=== PATIENT | male | born 1945 | race Caucasian/White ===

== ENCOUNTER 2023-02-06 18:16 | Emergency (ER) | payer OTHER, MEDICARE, SELFPAY ==
[2023-02-06 18:19] VITALS: BP 175/76; PULSE 84; RESP 20; TEMP 36.7; O2SAT 96; BMI 25.1
--- NOTE | 2023-02-06 18:33 | ED_ITS ---
HPI - Extremity Injury (Lower) General Chief Complaint: Extremity Pain/Injury, Lower Stated Complaint: Bruise Time Seen by Provider: 02/06/23 18:27 History of Present Illness HPI Narrative: Bruise to the back of the left leg. Has had for a week, getting worse. Hamstring feels painful. Unknown injury . Was standing a lot more in the boat the week before when he was on a fishing trip in [place]. Was in the car for about 8 hours to get to his trip. Did get up and move every couple of hours . Has a TENS machine that he may have increased to high. On a blood thinner 77-year-old man presenting to the emergency department with concern of injury to the left lower posterior thigh. Has an exercise device where he stands on it and in vibrates. This is not necessarily a new activity for him but had been doing it prior to development of this bruising swelling below his thigh. Noticed maybe a little sore after that. Had also been doing a lot of standing fishing in about on the trip. Does take anticoagulation in the form of rivaroxaban. Also extended trip recently. No particular trauma noted. No fever. No chest pain or shortness of breath or cough cold symptoms. He says his really evaluated this. They were told that if on this anticoagulant he starts to see any bruising than he needs to be evaluated Related Data Home Medications Medication Instructions Recorded Confirmed diltiazem HCl 120 mg 120 mg PO DAILY 02/06/23 02/06/23 capsule,extended release 12 hr losartan 50 mg tablet (Cozaar) 50 mg PO DAILY 02/06/23 02/06/23 omeprazole 20 mg capsule,delayed 20 mg PO DAILY 02/06/23 02/06/23 release rivaroxaban 20 mg tablet 20 mg PO DAILY 02/06/23 02/06/23 rosuvastatin 10 mg tablet (Crestor) 10 mg PO DAILY 02/06/23 02/06/23 trospium 20 mg tablet 20 mg PO DAILY 02/06/23 02/06/23 Allergies Allergy/AdvReac Type Severity Reaction Status Date / Time No Known Drug Allergies Allergy Verified 02/06/23 18:26 Review of Systems Status of ROS: Reports: 6 or more systems reviewed and unremarkable except as noted in History and below PFSH PFSH Social History Smoking Status: Unknown if ever smoked Exam Narrative: Exam Narrative: Pleasant. NAD. Cranial nerves 2-12 intact. Breathing easily. Heart with regular rate and rhythm. Examination lower extremities are some maybe subtle dependent edema in bilateral lower extremities. There is some purpling bruising posterior aspect of his lower left thigh. I do not appreciate effusion about the knees or any trauma to the skin otherwise. Const: Vital Signs, click to edit/add: Vital Signs - 24 hr 02/06/23 18:19 Temperature 98.0 F Pulse Rate [Pulse Oximeter] 84 Respiratory Rate 20 Blood Pressure [Ri ght Upper Arm] 175/76 H Pulse Oximetry 96 Course Vital Signs Vital signs: Initial Vital Signs Temperature 98.0 F 02/06/23 18:19 Temperature Source Temporal Artery Scan 02/06/23 18:19 Pulse Rate 84 02/06/23 18:19 Respiratory Rate 20 02/06/23 18:19 Blood Pressure 175/76 H 02/06/23 18:19 Blood Pressure Mean 109 H 02/06/23 18:19 Blood Pressure Position Sitting 02/06/23 18:19 Pulse Oximetry 96 02/06/23 18:19 Vital Signs Temperature 98.0 F 02/06/23 18:19 Pulse Rate 84 02/06/23 18:19 Respiratory Rate 20 02/06/23 18:19 Blood Pressure 175/76 H 02/06/23 18:19 Pulse Oximetry 96 02/06/23 18:19 Temperature 98.0 F 02/06/23 18:19 Pulse Rate 84 02/06/23 18:19 Respiratory Rate 20 02/06/23 18:19 Blood Pressure 175/76 H 02/06/23 18:19 Pulse Oximetry 96 02/06/23 18:19 MDM - Extremity Injury (Lower) MDM Narrative Medical decision making narrative: Given the lack of discomfort I suspect minor strain if any to the muscle or more likely some superficial bruising. Is anticoagulated unlikely to treat further for any DVT. It seems as though would be benefit from having further information. I would also do not think that there is a significant hematoma in this area. Nothing to drain. Can check hemoglobin as well. Ultrasound noted to be unremarkable. Discussed with technologist. Lab Data Attestation: I reviewed the patient's lab results. Labs: Lab Results 02/06/23 Range/Units 18:55 WBC 9.82 (4.50-11.00) K/uL RBC 4.72 (4.30-5.90) m/uL Hgb 14.9 (13.5-17.5) gm/dL Hct 45.2 (37.0-53.0) % MCV 96 (80-100) fL MCH 32 (26-34) pg MCHC 33 (32-36) gm/dL RDW Coeff of [place] 12.9 (11.5-15.5) % Plt Count 222 (140-440) K/uL Neut % (Auto) 73.8 H (42.0-72.0) % Lymph % (Auto) 14.6 L (20-44) % [place] % (Auto) 9.1 (0.0-11.0) % Eos % (Auto) 1.9 (0.0-7.0) % Baso % (Auto) 0.3 (0.0-3.0) % Neut # (Auto) 7.20 H (1.7-7.0) K/uL Lymph # (Auto) 1.40 (0.90-2.90) K/uL [place] # (Auto) 0.90 (0.00-0.90) K/UL Eos # (Auto) 0.19 (0.00-0.50) K/uL Baso # (Auto) 0.03 (0.00-0.30) K/uL Discharge Plan Discharge Clinical Impression: Anticoagulated, Muscle strain, Contusion Patient Disposition: Home, Self-Care Condition: Stable Additional Instructions: At this point I would continue your Xarelto. Watch for marked increase in pain, swelling, redness. Prescriptions: No Action losartan [Cozaar] 50 mg tablet 50 mg PO DAILY rivaroxaban 20 mg tablet 20 mg PO DAILY Rx Instructions: must administer with evening meal diltiazem HCl 120 mg capsule,extended release 12 hr 120 mg PO DAILY trospium 20 mg tablet 20 mg PO DAILY Rx Instructions: administer on an empty stomach omeprazole 20 mg capsule,delayed release(DR/EC) 20 mg PO DAILY rosuvastatin [Crestor] 10 mg tablet 10 mg PO DAILY Follow Up/Referrals: Provider,Not a Local [Primary Care Provider] - Stand Alone Forms: [employer] Info Instructions
--- NOTE | 2023-02-06 18:34 | CRLHL7_ITS ---
For Patients: As a result of the Century Cures Act, medical imaging exams and procedure reports are released immediately into your electronic medical record. You may view this report before your referring provider. If you have questions, please contact your health care provider. INDICATION: Pain, swelling and bruising COMPARISON: None available. FINDINGS: Ultrasound of the venous drainage of the left lower extremity shows no evidence of deep venous thrombosis. There is normal antegrade flow from the posterior tibial and popliteal veins superiorly through the common femoral vein. There is normal augmentation and compressibility of these veins. The right common femoral vein is widely patent. IMPRESSION: No evidence of deep venous thrombosis on ultrasound examination of the left lower extremity. Dictated by Don Dewitt MD @ 02/06/2023 8:27:51 PM (Electronically Signed)
[2023-02-06 19:00] LABS: Basophils Absolute Auto 0.03 K/uL (0.00-0.30); Basophils Percent Auto 0.3 % (0.0-3.0); Eosinophils Absolute Auto 0.19 K/uL (0.00-0.50); Eosinophils Percent Auto 1.9 % (0.0-7.0); Hematocrit 45.2 % (37.0-53.0); Hemoglobin* 14.9 gm/dL (13.5-17.5); Immature Granulocytes Abs Auto 0.03 K/uL (0.00-0.30); Immature Granulocytes Pct Auto 0.3 %; Lymphocytes Percent Auto 14.6 % (20-44); Mean Corpuscular HGB Conc 33 gm/dL (32-36); Mean Corpuscular Hemoglobin 32 pg (26-34); Mean Corpuscular Volume 96 fL (80-100); Monocytes Percent Auto 9.1 % (0.0-11.0); Neutrophils Percent Auto 73.8 % (42.0-72.0); Platelet Count* 222 K/uL (140-440); RDW Coefficient of Variation % 12.9 % (11.5-15.5); Red Blood Count 4.72 m/uL (4.30-5.90); White Blood Count* 9.82 K/uL (4.50-11.00)
[2023-02-06 19:03] LABS: Slide Review Reflex No
== END 2023-02-06 21:29 | disposition home or self-care (01) ==
PROVIDERS: Emergency Provider Family Medicine
DX: S70.12XA Contusion of left thigh, initial encounter (principal); Z79.01 Long term (current) use of anticoagulants; R60.0 Localized edema
CPT/HCPCS: 36415; 85025; 93971; 99283; 99284

== ENCOUNTER 2023-07-29 18:02 | Emergency (ER) | payer OTHER, MEDICARE, SELFPAY ==
[2023-07-29 18:22] VITALS: BP 169/108; PULSE 88; RESP 20; TEMP 36.3; O2SAT 98; BMI 25.8
--- NOTE | 2023-07-29 18:26 | ED.GENADULT ---
HPI - General Adult General Chief complaint: Epistaxis/Nosebleed Stated complaint: Spontaneous nose bleed followed by L eye bleed Time Seen by Provider: 07/29/23 18:07 History of Present Illness HPI narrative: Patient is a 77-year-old male had a nosebleed today he clamped it and it leaked out a little bit on the medial epicanthal area of his eye as well. He is on a novel anticoagulant arrive ox a band and he takes that for atrial fibrillation. The patient presents with left-sided nasal bleeding. He is not lightheaded or di Related Data Home Medications Medication Instructions Recorded Confirmed diltiazem HCl 120 mg 120 mg PO DAILY 02/06/23 02/06/23 capsule,extended release 12 hr losartan 50 mg tablet (Cozaar) 50 mg PO DAILY 02/06/23 02/06/23 omeprazole 20 mg capsule,delayed 20 mg PO DAILY 02/06/23 02/06/23 release rivaroxaban 20 mg tablet 20 mg PO DAILY 02/06/23 02/06/23 rosuvastatin 10 mg tablet (Crestor) 10 mg PO DAILY 02/06/23 02/06/23 trospium 20 mg tablet 20 mg PO DAILY 02/06/23 02/06/23 Previous Rx's Medication Instructions Recorded cephalexin 500 mg capsule 500 mg PO TID #15 caps 07/29/23 Allergies Allergy/AdvReac Type Severity Reaction Status Date / Time No Known Drug Allergies Allergy Verified 02/06/23 18:26 Review of Systems Status of ROS: Reports: 6 or more systems reviewed and unremarkable except as noted in History and below PFSH PFS Social History Smoking Status: Unknown if ever smoked Exam Narrative: Exam Narrative: Objective: Patient's vital signs show elevated blood pressure, he has a good amount of clotted blood in his left nostril. He has little bit of blood around lower aspect of his e Const: Vital Signs, click to edit/add: Vital Signs - 24 hr 07/29/23 18:22 Temperature 97.4 F L Pulse Rate [Pulse Oximeter] 88 Respiratory Rate 20 Blood Pressure [Ri ght Upper Arm] 169/108 H Pulse Oximetry 98 Oxygen Delivery Me thod Room Air Course Vital Signs Vital signs: Initial Vital Signs Temperature 97.4 F L 07/29/23 18:22 Temperature Source Temporal Artery Scan 07/29/23 18:22 Pulse Rate 88 07/29/23 18:22 Pulse Rhythm Regular 07/29/23 18:22 Respiratory Rate 20 07/29/23 18:22 Blood Pressure 169/108 H 07/29/23 18:22 Blood Pressure Mean 128 H 07/29/23 18:22 Blood Pressure Position Sitting 07/29/23 18:22 Pulse Oximetry 98 07/29/23 18:22 Oxygen Delivery Method Room Air 07/29/23 18:22 Vital Signs Temperature 97.4 F L 07/29/23 18:22 Pulse Rate 88 07/29/23 18:22 Respiratory Rate 20 07/29/23 18:22 Blood Pressure 169/108 H 07/29/23 18:22 Pulse Oximetry 98 07/29/23 18:22 Oxygen Delivery Method Room Air 07/29/23 18:22 Temperature 97.4 F L 07/29/23 18:22 Pulse Rate 88 07/29/23 18:22 Respiratory Rate 20 07/29/23 18:22 Blood Pressure 169/108 H 07/29/23 18:22 Pulse Oximetry 98 07/29/23 18:22 Oxygen Delivery Method Room Air 07/29/23 18:22 Medications Administered Medications: Discontinued Medications Generic Name Dose Route Start Last Admin Trade Name Xiomara PRN Reason Stop Dose Admin Cephalexin HCl 500 mg 07/29/23 18:32 07/29/23 18:39 Cephalexin 500 Mg Capsule PO 07/29/23 18:33 500 mg ONCE ONE Administration Medical Decision Making MDM Narrative Medical decision making narrative: [age] white male on anticoagulation for AFib with left nasal epistaxis. After observation and exam the patient has a narrow nasal passage. Was unable to pass a rhino rocket. I did put some silver nitrate cautery around the nasal septum on the left and then that was followed with Brynn after I cut it down to a sharper narrow were component. This was able to pass. I was able to secure to his cheek with the strings. This should be removed in 48 hours. I will put him on Keflex 500 t.i.d. x5 days. He will be observed in the ED for appeared of time make sure he has no further bleeding at this point is bleeding has been stopped and will clean him up and observe for period of time if he is doing well long to go home. Discussed that there is good percentage of time that the nose rebleeds and he may need repeat treatment. Hopefully we can stop it with the pack. He has appointment his doctor within 48 hours and he can get the pack removed at that time. If at any time he has problem or can get the pack out with his clinic he can come back to the ER Discharge Plan Discharge Clinical Impression: Epistaxis Patient Disposition: Home w/ Parent or Adult Condition: Improved Instructions: Nosebleed (ED) Additional Instructions: Avoid picking or blowing the nose, leave the Merocel in until Thursday morning and then may have this removed at the clinic. Put you on an antibiotic prevent sinus infection 3 times a day for the next 5 days. Return to the ED for recurrent bleeding of significant amount or other concerns. Activity Level: Light activity Discharge Diet: Regular Prescriptions: New cephalexin 500 mg capsule 500 mg PO TID Qty: 15 0RF No Action losartan [Cozaar] 50 mg tablet 50 mg PO DAILY rivaroxaban 20 mg tablet 20 mg PO DAILY Rx Instructions: must administer with evening meal diltiazem HCl 120 mg capsule,extended release 12 hr 120 mg PO DAILY trospium 20 mg tablet 20 mg PO DAILY Rx Instructions: administer on an empty stomach omeprazole 20 mg capsule,delayed release(DR/EC) 20 mg PO DAILY rosuvastatin [Crestor] 10 mg tablet 10 mg PO DAILY Follow Up/Referrals: Provider,Not a Local [Primary Care Provider] - Stand Alone Forms: [facility] [employer] Info Instructions
[2023-07-29] MEDS: cephALEXin 500 MG CAPSULE PO (18:39)
== END 2023-07-29 18:50 | disposition home or self-care (01) ==
LOC: ED 18:44
PROVIDERS: Emergency Provider Family Medicine
DX: R04.0 Epistaxis (principal)
CPT/HCPCS: 30901; 95992; 99283; A9270

== ENCOUNTER 2023-07-30 10:14 | Emergency (ER) | payer OTHER, MEDICARE, SELFPAY ==
[2023-07-30 10:19] VITALS: BP 156/84; PULSE 74; RESP 18; TEMP 36.4; O2SAT 98; BMI 25.8
[2023-07-30] MEDS: TRANEXAMIC ACID 100 MG/ML INJ 1000 MG TOPICAL (11:12)
[2023-07-30] MEDS: OXYMETAZOLINE 0.05% NASAL SPRAY 1 SPRAY NOSTRIL-B (11:12)
--- NOTE | 2023-07-30 11:12 | ED.NURSE ---
Meds admin to Mily gaxiola by Dr. Pineda
--- NOTE | 2023-07-30 11:31 | ED_ITS ---
HPI - General Adult General Date Seen: 07/30/23 Chief complaint: Epistaxis/Nosebleed Stated complaint: Bloody nose Time Seen by Provider: 07/30/23 11:03 History of Present Illness HPI narrative: Very pleasant 77-year-old gentleman accompanied to the ER today by his for evaluation of epistaxis. He has a past history of AFib (on Xarelto), high cholesterol, hypertension. He has had occasional nosebleeds in the last but no significant nose bleeds requiring him to see a doctor. He yesterday afternoon around 2:00 p.m. he was bending forward we started having dripping from his left nostril. It sounds like he was having a fairly brisk ?drip drip drip? from his left nostril yesterday afternoon that he could get to stop at home. He came into the ER yesterday and was seen by Dr. Newman did. He had nasal exam. Attempted nasal cautery but ultimately require packing. His nostril was too tight to accept a rhino rocket but Dr. Newman was able to place a Merocel. Bleeding seemed to be controlled yesterday so he was discharged. He notes that he has had recurrent bleeding with slow dripping out the front of his left nostril and a little bit of blood coming out of his left eye, all night long. It is less vigorous than the ?drip drip drip? that was occurring yesterday but has not stopped either. He is not otherwise lightheaded or dizzy or weak from blood loss. Difficult for him to estimate the amount of blood that is, but perhaps half a cup for a cup. Related Data Home Medications Medication Instructions Recorded Confirmed diltiazem HCl 120 mg 120 mg PO DAILY 02/06/23 07/30/23 capsule,extended release 12 hr losartan 50 mg tablet (Cozaar) 50 mg PO DAILY 02/06/23 07/30/23 omeprazole 20 mg capsule,delayed 20 mg PO DAILY 02/06/23 07/30/23 release rivaroxaban 20 mg tablet 20 mg PO DAILY 02/06/23 07/30/23 rosuvastatin 10 mg tablet (Crestor) 10 mg PO DAILY 02/06/23 07/30/23 trospium 20 mg tablet 20 mg PO DAILY 02/06/23 07/30/23 Previous Rx's Medication Instructions Recorded cephalexin 500 mg capsule 500 mg PO TID #15 caps 07/29/23 Allergies Allergy/AdvReac Type Severity Reaction Status Date / Time No Known Drug Allergies Allergy Verified 07/30/23 10:19 [facility] Social History Smoking Status: Former smoker How often do you have a drink containing alcohol: monthly or less AUDIT-C Alcohol total score: 1 Non-prescribed substance use: denies use Exam Narrative: Exam Narrative: Constitutional: Appears well-developed and well-nourished. Alert. Conversant. Non toxic. HENT: Head: Atraumatic. Nose: External nose normal. Right nares normal. Visualized nasal septum normal. He has Merocel packing in the left nares. It is saturated with blood. No active bleeding. We decided to remove it to reassess. Packing was gently removed. The packing appears to be saturated of blood in the anterior 1-2 cm but the posterior 2 cm of the pack actually appears fairly white and does not have much blood in it. This would suggest a probable anterior source of bleeding. We evaluated the patient's left naris. There is a cautery eschar around the left nares the including the septum, lateral wall, floor of the naris. He seems to be having some blood possibly coming from the edges of the cautery. Difficult to visualize a true site of bleeding. Mouth/Throat: Oral mucosa is clear and moist. no trismus. Pharynx normal. Tonsils symmetric. No tonsillar enlargement, erythema, or exudate. No posterior or pharyngeal bleeding. Eyes: Conjunctivae normal. EOM normal. Pupils equal, round, and reactive to light. No scleral icterus. Neck: Normal range of motion. Neck supple. No tracheal deviation present. Cardiovascular: Normal rate, regular rhythm. E. Pulse 74. Normal cap refill. Skin is pink warm, well perfused. Pulmonary/Chest: Effort normal. No stridor. No respiratory distress. RUE: Normal range of motion. No tenderness. No deformity LUE: Normal range of motion. No tenderness. No deformity RLE: Normal range of motion. No edema. No tenderness. No deformity LLE: Normal range of motion. No edema. No tenderness. No deformity Lymph: No cervical adenopathy. Neurological: Alert and oriented to person, place, and time. Normal strength. CN II-VII intact. No sensory deficit. GCS eye subscore is 4. GCS verbal subscore is 5. GCS motor subscore is 6. Normal coordination Skin: Skin is warm and dry. No rash noted. No pallor. Normal capillary refill. Psychiatric: Normal mood. Normal affect. Const: Vital Signs, click to edit/add: Vital Signs - 24 hr 07/30/23 10:19 Temperature 97.5 F L Pulse Rate [Pulse Oximeter] 74 Respiratory Rate 18 Blood Pressure [Ri ght Upper Arm] 156/84 H Pulse Oximetry 98 Oxygen Delivery Me thod Room Air Course Course ED Course: Initial exam performed. He had Merocel in place in his left naris. It was soaked with blood but not actively dripping. No posterior bleeding. We decided remove them Merocel for for better examination. Merocel was removed. I was able to see left naris. There was eschar from cautery. There appeared to be some recent active bleeding either around the edge of the eschar or possibly from posterior to it. Unclear to identify definitive source. Administered Afrin 2 sprays in the left nares. Also applied 1 cotton ball soaked in TXA. We allow these medications to sit for 10 minutes. Recheck-still on going very slow minimal oozing. Appears to be coming from the mucosal edge right around the edge of the cautery eschar and also a little bit from the center of the cautery on the lower floor of the naris. I applied a cotton ball soaked in 1% lidocaine with epinephrine. We also administered 2 mL of 1% lidocaine with epi through mucosal atomizer device and the patient left nares. Good anesthesia was achieved. I performed cautery of the epistaxis using silver nitrate. We took care to carefully cauterized the section sections where slow active bleeding was coming from. The sections included a section on the floor of the left nares. This almost appears to be the center of the previous cautery which appears to a [place] on. He also had a couple of spots that had bruising on the nasal septum. After cautery, bleeding seemed to be controlled. Recheck. I had the patient rest in bed fiber 10 minutes. At recheck there is still minimal bleeding at the floor of the left Acharya. I recall a raised 1 time. We seemed to achieve hemostasis. There is still a little bit of some bloody fluid deeper in the patient's nostril which I think is left over from his earlier bleeding. I had the patient gently express this blood. Only a few drops came out. Care was taken to avoid disrupting the hemostasis we had just achieved by cautery. Recheck-doing well. No ongoing bleeding. Recheck-passed ambulation trial. No recurrent bleeding. Vital Signs Vital signs: Initial Vital Signs Temperature 97.5 F L 07/30/23 10:19 Temperature Source Temporal Artery Scan 07/30/23 10:19 Pulse Rate 74 07/30/23 10:19 Respiratory Rate 18 07/30/23 10:19 Blood Pressure 156/84 H 07/30/23 10:19 Blood Pressure Mean 108 H 07/30/23 10:19 Blood Pressure Position Sitting 07/30/23 10:19 Pulse Oximetry 98 07/30/23 10:19 Oxygen Delivery Method Room Air 07/30/23 10:19 Vital Signs Temperature 97.5 F L 07/30/23 10:19 Pulse Rate 74 07/30/23 10:19 Respiratory Rate 18 07/30/23 10:19 Blood Pressure 156/84 H 07/30/23 10:19 Pulse Oximetry 98 07/30/23 10:19 Oxygen Delivery Method Room Air 07/30/23 10:19 Temperature 97.5 F L 07/30/23 10:19 Pulse Rate 74 07/30/23 10:19 Respiratory Rate 18 07/30/23 10:19 Blood Pressure 156/84 H 07/30/23 10:19 Pulse Oximetry 98 07/30/23 10:19 Oxygen Delivery Method Room Air 07/30/23 10:19 Medications Administered Medications: Discontinued Medications Generic Name Dose Route Start Last Admin Trade Name Freq PRN Reason Stop Dose Admin Lidocaine/Epinephrine 20 ml 07/30/23 11:05 07/30/23 11:12 Lidocaine 1%-Epi 1:100,000 20 Ml INFILTRATI 07/30/23 11:06 20 ml ONCE ONE Administration Oxymetazoline HCl 1 spray 07/30/23 11:05 07/30/23 11:12 Oxymetazoline 0.05% Nasal [place] NOSTRIL-B 1 spray BID PRN Administration Tranexamic Acid 1,000 mg 07/30/23 11:05 07/30/23 11:12 Tranexamic Acid 100 Mg/Ml Inj TOPICAL 07/30/23 11:06 1,000 mg ONCE ONE Administration Medical Decision Making MDM Narrative Medical decision making narrative: Very pleasant 77-year-old gentleman on Eliquis for stroke prophylaxis in AFib presents to the ER today with recurrent low volume epistaxis from his left near. He had been seen yesterday and underwent silver nitrate cautery and then packing of his nostril with Merocel. Despite that had slow ongoing dripping overnight. As above we removed the Merocel packing and were able to re-evaluate his nares. I feel like I was able to identify the site of bleeding. We were able to get control of the bleeding with a combination Afrin, TXA, silver nitrate cautery. At this point the patient is not actively bleeding. We monitor him here in the ER after cautery and with ambulation trial and he had no rebleeding. Due to the discomfort and potential risk of infection associated with packing, we will hold off on Repatha Alec his nostril with rhino rocket or Merocel today. Discussed with the patient and his that there is definitely a risk for rebleeding in this scenario. We discussed steps and precautions for how to try to prevent and deal with rebleed. I would recommend that he hold his dose of Xarelto tonight and his 2 doses tomorrow. Overall if that the risk of recurrent nose bleeds would outweigh the benefit of stroke prophylaxis in the short term. Obviously this is not immediately reverse his anticoagulation, but holding the Xarelto would help with hemostasis and reduce the risk of rebleeding tomorrow. At this point we would categorize the nose bleed as non life-threatening. At this point I do not think he needs hemoglobin monitoring, coagulation checks, transfusion, admission, or immediate reversal with PCC. Risks of immediate reversal such as thrombosis would clearly outweigh the benefit in this case. Assuming his nosebleed is controlled, he will restart the Xarelto after tomorrow. This minimizes his overall long-term stroke risk from AFib. Precautions for return to the ER reviewed. Discharge Plan Discharge Clinical Impression: Epistaxis Patient Disposition: Home, Self-Care Condition: Stable Instructions: Nosebleed (ED) Additional Instructions: If you have more bleeding from her nose, please apply pressure for 10 minutes with your fingers or with the nasal clamp. If the bleeding does not stop after 10 minutes of pressure, come back to the ER. We were able to take the packing out of your nose today. We seemed to have been able to control the bleeding with cautery. Since the packing is out of your nose, you can stop your antibiotic (Keflex) after today. Please do not take your dose of Xarelto tonight or your doses tomorrow. After that, as long as the bleeding is under control, please restart your Xarelto. Remember, come back to the ER any time, right away, if you have any problems. Prescriptions: No Action cephalexin 500 mg capsule 500 mg PO TID Qty: 15 0RF losartan [Cozaar] 50 mg tablet 50 mg PO DAILY rivaroxaban 20 mg tablet 20 mg PO DAILY Rx Instructions: must administer with evening meal diltiazem HCl 120 mg capsule,extended release 12 hr 120 mg PO DAILY trospium 20 mg tablet 20 mg PO DAILY Rx Instructions: administer on an empty stomach omeprazole 20 mg capsule,delayed release(DR/EC) 20 mg PO DAILY rosuvastatin [Crestor] 10 mg tablet 10 mg PO DAILY Follow Up/Referrals: Provider,Not a Local [Referring] - Stand Alone Forms: [employer] Info Instructions
== END 2023-07-30 13:07 | disposition home or self-care (01) ==
PROVIDERS: Emergency Provider Emergency Medicine; PCP Nurse Practitioner Family
DX: R04.0 Epistaxis (principal)
CPT/HCPCS: 30901; 95992; 99282; 99283; A9270

== ENCOUNTER 2024-06-13 08:14 | Emergency (ER) | payer OTHER, MEDICARE, SELFPAY ==
[2024-06-13 08:18] VITALS: PULSE 75; RESP 18; TEMP 36.6; O2SAT 97; BMI 25.1
[2024-06-13 08:29] VITALS: BP 190/98
--- NOTE | 2024-06-13 09:05 | ED.GENADULT ---
HPI - General Adult General Chief complaint: Shoulder Injury/Pain Stated complaint: RT shoulder thinks dislocation Time Seen by Provider: 06/13/24 09:05 History of Present Illness HPI narrative: Patient presents to the emergency department complaining right shoulder pain. Patient this morning was rolling out of bed and felt instant pain in his shoulder. Patient had a shoulder dislocation around labor day. 78-year-old man presenting to the emergency department with concern of right shoulder pain. Is worried it might be dislocated. Around Labor Day this year dislocated his right shoulder requiring sedation to relocate. Clarification later reveals that this was a traumatic dislocation. Prior to this reports a history of rotator cuff repair in this same shoulder. Is having constant pain. Today he thinks he may have dislocated it while in bed just reaching his right arm up over his head. Related Data Home Medications ?Medication ?Instructions ?Recorded ?Confirmed diltiazem HCl 120 mg 120 mg PO DAILY 02/06/23 06/16/24 capsule,extended release 12 hr losartan 50 mg tablet (Cozaar) 50 mg PO DAILY 02/06/23 06/16/24 omeprazole 20 mg capsule,delayed 20 mg PO DAILY 02/06/23 06/16/24 release rivaroxaban 20 mg tablet 20 mg PO DAILY 02/06/23 06/16/24 rosuvastatin 10 mg tablet (Crestor) 10 mg PO DAILY 02/06/23 06/16/24 trospium 20 mg tablet 20 mg PO DAILY 02/06/23 06/16/24 aspirin 81 mg tablet,delayed 81 mg PO QDAY 06/16/24 06/16/24 release (Adult Low Dose Aspirin) coQ10 (ubiquinol) 100 mg capsule 300 mg PO BID 06/16/24 06/16/24 (Qunol Victor Hugo CoQ10) cranberry extract 650 mg capsule 650 mg PO QDAY 06/16/24 06/16/24 docusate sodium 100 mg capsule 100 mg PO QDAY 06/16/24 06/16/24 (Stool Softener) glucosamine HCl 1,500 mg tablet 1,500 mg PO QDAY 06/16/24 06/16/24 multivitamin (Multiple Vitamins 1 tab PO QDAY 06/16/24 06/16/24 tablet) omega-3 fatty acids-fish oil 360 2 cap PO QDAY 06/16/24 06/16/24 mg-1,200 mg capsule (Fish Oil) Allergies Allergy/AdvReac Type Severity Reaction Status Date / Time lisinopril Allergy Intermediate Rash Verified 06/16/24 10:13 Review of Systems Status of ROS: Reports: 6 or more systems reviewed and unremarkable except as noted in History and below [facility] Surgical History (Updated 06/14/24 @ 11:29 by Francisca Lomas) History of hernia repair ?Z98.890 - Other specified postprocedural states (ICD-10) ?Z87.19 - Personal history of other diseases of the digestive system (ICD-10) History of arthroscopy of right shoulder (07/31/17) ?Z98.890 - Other specified postprocedural states (ICD-10) Social History Smoking Status: Former smoker How often do you have a drink containing alcohol: monthly or less How often do you have six or more drinks on one occasion: Never AUDIT-C Alcohol total score: 1 Non-prescribed substance use: denies use Exam Narrative: Exam Narrative: Pleasant. NAD. Has an arm sling here. Sulcus evident at the right shoulder below the acromion. Does appear consistent with anterior dislocation. Favoring the right arm. No evidence of trauma in the area. Well-perfused peripherally. Const: Vital Signs, click to edit/add: Vital Signs - 24 hr 06/13/24 08:18 06/13/24 08:29 Temperature 98 F Pulse Rate [Left P ulse Oximeter] 75 Respiratory Rate 18 Blood Pressure [Le ft Upper Arm] 190/98 H Pulse Oximetry 97 Oxygen Delivery Me thod Room Air Documenting provider has reviewed patient's vital signs: yes Course Vital Signs Vital signs: Initial Vital Signs Temperature 98 F 06/13/24 08:18 Temperature Source Temporal Artery Scan 06/13/24 08:18 Pulse Rate 75 06/13/24 08:18 Pulse Rhythm Irregular 06/13/24 08:18 Pulse Strength 3+ Normal 06/13/24 08:18 Respiratory Rate 18 06/13/24 08:18 Pulse Oximetry 97 06/13/24 08:18 Oxygen Delivery Method Room Air 06/13/24 08:18 Vital Signs Temperature 98 F 06/13/24 08:18 Pulse Rate 75 06/13/24 08:18 Respiratory Rate 18 06/13/24 08:18 Pulse Oximetry 97 06/13/24 08:18 Oxygen Delivery Method Room Air 06/13/24 08:18 Temperature 98 F 06/13/24 08:18 Pulse Rate 75 06/13/24 08:18 Respiratory Rate 18 06/13/24 08:18 Blood Pressure 190/98 H 06/13/24 08:29 Pulse Oximetry 97 06/13/24 08:18 Oxygen Delivery Method Room Air 06/13/24 08:18 Medical Decision Making MDM Narrative Medical decision making narrative: Returned to inject sulcus with 5 mL of bupivacaine. Pending imaging for confirmation Review of shoulder x-ray by me does appear to show an anterior dislocation of the glenohumeral joint. Depression also in the right humeral head consistent with Hill-Sachs fracture. I did return to attempt to relocate this joint. With gentle traction and Fairplay technique at the bedside without further sedation, did manage to put this back in I think. Confirmed relocated with postreduction x-ray by my read. Question of inferior glenoid fracture by radiology over-read. Did discuss this case with Orthopedic surgery. Might need some interventions as dislocating very easily. Would like follow-up and CT imaging of the shoulder ahead of that. Did review CT imaging of the shoulder. Radiology over-read below TECHNIQUE: Noncontrast CT of the right shoulder. COMPARISON: Radiographs 06/13/2024. FINDINGS: There is a subacute displaced bony Bankart fracture of the anterior to anterior inferior glenoid. The fragment measures approximately 20 x 4 x 11 mm. The fragment is displaced anteriorly, inferiorly and medially. Approximately 10 millimeters of inferior displacement is noted on sagittal image number 60 of series 5. There is some callus formation associated with the fracture medially indicating subacute nature. Based on best fit [place] method, this is estimated to involve approximately 10 percent of the glenoid. There is a Hill-Sachs lesion of the humeral head present posterior superiorly spanning an approximately 20 x 20 millimeter extent of the humeral head. No dislocation currently. A glenohumeral joint effusion is present. There are mild underlying degenerative changes of the glenohumeral joint. Severe atrophy of the infraspinatus muscle. Moderate atrophy of the supraspinatus muscle. Slight spurring of the undersurface of lateral acromion. IMPRESSION: 1. Subacute displaced bony Bankart fracture of the anterior to anterior-inferior glenoid estimated to involve approximately 10 percent of the glenoid. 2. Hill-Sachs lesion of the humeral head measuring approximately 20 mm. 3. No dislocation currently. A glenohumeral joint effusion is present. Mild underlying degenerative changes. 4. Severe atrophy of the infraspinatus and moderate atrophy of the supraspinatus muscles. Replaced in his arm sling. Information for follow-up with Orthopedics See patient discharge plan for further discussion Discharge Plan Discharge Clinical Impression: Hill Sachs deformity, right Anterior dislocation of right shoulder Qualifiers: Encounter type: initial encounter Qualified Code(s): S43.014A - Anterior dislocation of right humerus, initial encounter Glenoid fracture of shoulder Qualifiers: Encounter type: initial encounter Fracture type: closed Laterality: right Qualified Code(s): S42.141A - Displaced fracture of glenoid cavity of scapula, right shoulder, initial encounter for closed fracture Additional Instructions: Avoid raising your arm overhead today over the next week to the degree that you did pending further recommendations from Orthopedics. Wear this arm sling over this next week. You asked about exercises; have included some exercises here. Again take care with those overhead raises. I would take this handout with you to follow-up in see what Orthopedics would recommend. Please call them later today for a follow-up appointment this next week possible. Prescriptions: No Action aspirin [Adult Low Dose Aspirin] 81 mg tablet,delayed release (DR/EC) 81 mg PO QDAY multivitamin [Multiple Vitamins] Tablet 1 tab PO QDAY docusate sodium [Stool Softener] 100 mg capsule 100 mg PO QDAY cranberry extract 650 mg capsule 650 mg PO QDAY Rx Instructions: administer with a meal omega-3 fatty acids-fish oil [Fish Oil] 360-1,200 mg capsule 2 cap PO QDAY glucosamine HCl 1,500 mg tablet 1,500 mg PO QDAY Rx Instructions: administer with a meal coQ10 (ubiquinol) [Qunol Victor Hugo CoQ10] 100 mg capsule 300 mg PO BID losartan [Cozaar] 50 mg tablet 50 mg PO DAILY rivaroxaban 20 mg tablet 20 mg PO DAILY Rx Instructions: must administer with evening meal diltiazem HCl 120 mg capsule,extended release 12 hr 120 mg PO DAILY trospium 20 mg tablet 20 mg PO DAILY Rx Instructions: administer on an empty stomach omeprazole 20 mg capsule,delayed release(DR/EC) 20 mg PO DAILY rosuvastatin [Crestor] 10 mg tablet 10 mg PO DAILY Follow Up/Referrals: Walter Tovar NP [Primary Care Provider] - Stand Alone Forms: Prescription Eyewear Info Instructions
--- NOTE | 2024-06-13 09:13 | CRLHL7_ITS ---
For Patients: As a result of the Century Cures Act, medical imaging exams and procedure reports are released immediately into your electronic medical record. You may view this report before your referring provider. If you have questions, please contact your health care provider. INDICATION: Evaluate for dislocation COMPARISON: None. TECHNIQUE: Three views right shoulder FINDINGS: There is some flattening of the superolateral femoral head. No discrete fracture lines visible. The humeral head is dislocated anteriorly and inferiorly relative to the glenoid. No focally destructive bony lesion. Normal bone mineralization. Soft tissues are normal. No foreign body. IMPRESSION: 1. Right anterior glenohumeral dislocation. 2. Probable right humeral head Hill-Sachs impaction fracture. No glenoid fracture seen. Dictated by Nina Morales MD @ 06/13/2024 9:48:51 AM (Electronically Signed)
--- NOTE | 2024-06-13 10:13 | CRLHL7_ITS ---
For Patients: As a result of the Cures Act, medical imaging exams and procedure reports are released immediately into your electronic medical record. You may view this report before your referring provider. If you have questions, please contact your health care provider. Indication: Postreduction Technique: Right shoulder 3 views. Comparison: 06/13/2024 Findings: Interval reduction of glenohumeral dislocation. Acromioclavicular joint is normal. Possible fracture at the inferior glenoid. Impression: Reduction of glenohumeral dislocation. Possible inferior glenoid fracture. Dictated by Jw Crain MD @ 06/13/2024 10:43:23 AM (Electronically Signed)
--- NOTE | 2024-06-13 10:54 | CRLHL7_ITS ---
For Patients: As a result of the Century Cures Act, medical imaging exams and procedure reports are released immediately into your electronic medical record. You may view this report before your referring provider. If you have questions, please contact your health care provider. INDICATION: Recurrent dislocation. Evaluate for fracture. TECHNIQUE: Noncontrast CT of the right shoulder. COMPARISON: Radiographs 06/13/2024. FINDINGS: There is a subacute displaced bony Bankart fracture of the anterior to anterior inferior glenoid. The fragment measures approximately 20 x 4 x 11 mm. The fragment is displaced anteriorly, inferiorly and medially. Approximately 10 millimeters of inferior displacement is noted on sagittal image number 60 of series 5. There is some callus formation associated with the fracture medially indicating subacute nature. Based on best fit [place] method, this is estimated to involve approximately 10 percent of the glenoid. There is a Hill-Sachs lesion of the humeral head present posterior superiorly spanning an approximately 20 x 20 millimeter extent of the humeral head. No dislocation currently. A glenohumeral joint effusion is present. There are mild underlying degenerative changes of the glenohumeral joint. Severe atrophy of the infraspinatus muscle. Moderate atrophy of the supraspinatus muscle. Slight spurring of the undersurface of lateral acromion. IMPRESSION: 1. Subacute displaced bony Bankart fracture of the anterior to anterior-inferior glenoid estimated to involve approximately 10 percent of the glenoid. 2. Hill-Sachs lesion of the humeral head measuring approximately 20 mm. 3. No dislocation currently. A glenohumeral joint effusion is present. Mild underlying degenerative changes. 4. Severe atrophy of the infraspinatus and moderate atrophy of the supraspinatus muscles. Dictated by Dex Patiño MD @ 06/13/2024 11:19:44 AM Please note that all CT scans at this facility use dose modulation, iterative reconstruction, and/or weight-based dosing when appropriate to reduce radiation dose to as low as reasonably achievable. Dictated by: Dex Patiño MD @ 06/13/2024 11:19:50 (Electronically Signed)
== END 2024-06-13 11:41 | disposition home or self-care (01) ==
PROVIDERS: Emergency Provider Family Medicine; PCP Nurse Practitioner Family
DX: S42.291A Other displaced fracture of upper end of right humerus, initial encounter for closed fracture (principal); S43.004A Unspecified dislocation of right shoulder joint, initial encounter; S42.141A Displaced fracture of glenoid cavity of scapula, right shoulder, initial encounter for closed fracture; W19.XXXA Unspecified fall, initial encounter
CPT/HCPCS: 23650; 73030; 73200; 99284